=== PATIENT | male | born 1980 | race Caucasian/White ===

== ENCOUNTER → 2017-07-26 | Outpatient (CLI) | payer BC ==
--- NOTE | 2017-07-26 11:43 | ECHOS ---
STRESS ECHOCARDIOGRAM INDICATIONS: Chest pain, abnormal EKG. MEDICATIONS: Metformin, Januvia, aspirin, Lipitor. BASELINE HEART RATE: 101 BASELINE BLOOD PRESSURE: 130/49 MAXIMUM HEART RATE: 173 MAXIMUM BLOOD PRESSURE: 207/62 85% MPHR: 154 100% MPHR: 181 METS: 8.7 MAXIMUM STAGE REACHED: 3 TOTAL EXERCISE TIME: 7:00 CLINICAL INFORMATION: Baseline EKG revealed normal sinus rhythm without significant ST-T changes. Patient walked for 7 minutes on standard Ángel protocol. Resting heart rate was 101 beats per minute. Peak heart rate was 173 beats per minute. Resting blood pressure was 130/60 and peak blood pressure was 207/62. Patient did not have any angina or arrhythmia. EKG revealed upsloping nonspecific ST-segment changes, not suggestive of ischemia. There was no arrhythmia. This is a negative stress test by EKG criteria with limited exercise capacity. Baseline echo images revealed normal wall motion and wall thickening of all segments. At peak exercise there was good augmentation of left ventricular wall motion and wall thickening of all segments. A contrast agent was used to enhance the endocardial outline. There is no evidence suggest ischemia on this stress echocardiogram. IMPRESSION: 1. Limited exercise capacity with a negative stress test by EKG criteria. 2. Normal stress echocardiogram. MMODL / IJN: [id number] /
== END | disposition home or self-care (01) ==
LOC: RADNMMAIN 09:35
PROVIDERS: ATTEND Family Medicine
DX: I25.2 Old myocardial infarction (principal)
CPT/HCPCS: 93350; 93017; Q9950

== ENCOUNTER 2018-11-19 15:27 | Emergency (ER) | payer BC ==
[2018-11-19 15:48] VITALS: TEMP 98.6
[2018-11-19] MEDS ORDERED: IBUPROFEN 800 MG TAB PO STA (16:23)
[2018-11-19] MEDS ORDERED: DIPH,PERTUS(ACELL)TETVAC-LF 0.5 ML VIAL IM ONE (16:37)
--- NOTE | 2018-11-19 17:11 | XR ---
EXAMINATION TYPE: XR foot limited RT DATE OF EXAM: 11/19/2018 COMPARISON: NONE HISTORY: Foot pain TECHNIQUE: 2 views FINDINGS: Metatarsals are intact. There are plantar and Achilles calcaneal spurs. There is nondispla zaida fracture of the middle phalanx of the second toe. There is no dislocation. IMPRESSION: Fracture of the second toe middle phalanx. There is probably also fracture of the distal phalanx of the second toe.
[2018-11-19] MEDS ORDERED: LIDOCAINE 1% INJ 10MG/ML (20 ML MDV) SQ ONE (17:23)
--- NOTE | 2018-11-19 19:50 | ED ---
General Adult HPI - General Chief complaint: Wound/Laceration Stated complaint: Foot injury Time Seen by Provider: 11/19/18 16:19 Source: patient Mode of arrival: wheelchair Limitations: no limitations - History of Present Illness Initial comments: Patient is a 38-year-old male presents emergency Department with an injury to his right second toe. Patient reports using a lawnmower one hour ago when he accidentally ran over his right foot. Patient reports injury to the right second toe. Patient reports full range of motion. Denies numbness or tingling. Patient reports the pain is mild and throbbing. Patient reports mild bleeding at the site of injury. Patient denies taking medication to alleviate the symptoms. Patient is unaware of his tetanus status. Patient is not on blood thinners. - Related Data Previous Rx's Medication Instructions Recorded Cephalexin [Keflex] 500 mg PO Q6HR #40 cap 11/19/18 Allergies Allergy/AdvReac Type Severity Reaction Status Date / Time No Known Allergies Allergy Verified 11/19/18 15:48 Review of Systems ROS Statement: Those systems with pertinent positive or pertinent negative responses have been documented in the HPI. ROS Other: All systems not noted in ROS Statement are negative. Past Medical History Past Medical History: Diabetes Mellitus, Sleep Apnea/CPAP/BIPAP History of Any Multi-Drug Resistant Organisms: None Reported Past Surgical History: Appendectomy Past Psychological History: No Psychological Hx Reported Smoking Status: Never smoker Past Alcohol Use History: Rare Past Drug Use History: Marijuana General Exam Limitations: no limitations General appearance: alert, in no apparent distress, obese Head exam: Present: atraumatic, normocephalic, normal inspection Eye exam: Present: normal appearance, PERRL, EOMI Pupils: Present: normal accommodation ENT exam: Present: normal exam, mucous membranes moist, normal external ear exam Neck exam: Present: normal inspection, full ROM Respiratory exam: Present: normal lung sounds bilaterally Cardiovascular Exam: Present: regular rate, normal rhythm, normal heart sounds Extremities exam: Present: full ROM, tenderness (Tenderness at the site of injury), other (+2 dorsalis pedis and posterior tibialis bilaterally). Absent: normal inspection (Nail avulsion of the right second toe, abrasion on the right toe.), calf tenderness Back exam: Present: normal inspection, full ROM Neurological exam: Present: alert, oriented X3 Psychiatric exam: Present: normal affect, normal mood Skin exam: Present: warm, intact, normal color Course Vital Signs 11/19/18 11/19/18 15:44 20:10 Temperature 98.6 F Pulse Rate 103 H 94 Respiratory 16 18 Rate Blood Pressure 122/78 155/82 O2 Sat by Pulse 99 100 Oximetry Procedures - Procedures Initial comment: Toenail removal. 1% lidocaine digital block performed, wound irrigated thoroughly, open fracture of distal phalanges, nail bed laceration, Medical Decision Making - Medical Decision Making Patient is a 38-year-old male presenting to emergency Department with lawnmower injury to his right second toe. The site of injury was thoroughly irrigated with iodine water. Toenail was removed. There appears to be a laceration site to the nailbed an open fracture. X-ray is indicative of 1 fracture and right second toe and possible on the distal phalange. also examined the patient and is in agreement with the treatment plan. He spoke with Dr. Perales who suggested to put a bandage at the site of injury and sent him for all patient evaluation. Patient will be discharged with Keflex. Patient given Tylenol 3 starter pack. Patient given tetanus. Patient also given 1 g of Ancef. Patient will be discharged with an orthopedic shoe to minimize pressure at the site of injury. Patient advised to follow-up with Dr. Perales. Strict return parameters were thoroughly discussed with patient was understanding and agreeable. Disposition Clinical Impression: Nail avulsion of toe Disposition: HOME SELF-CARE Condition: Stable Instructions (If sedation given, give patient instructions): Nail Removal (ED) Additional Instructions: Please see prescribe medication as directed. Please follow up with orthopedics. Please return to emergency department if symptoms worsen. Prescriptions: Cephalexin [Keflex] 500 mg PO Q6HR #40 cap Is patient prescribed a controlled substance at d/c from ED?: No Referrals: Jason Lewis MD [Primary Care Provider] - 1-2 days Freddy Perales MD [STAFF PHYSICIAN] - 1-2 days Time of Disposition: 19:50
[2018-11-19] MEDS ORDERED: ACET/COD 300 MG/30 MG STARTER PACK 6 TAB BTL PO STA (20:04)
[2018-11-19 20:24] VITALS: BP 155/82; PULSE 94; RESP 18
== END 2018-11-19 20:10 | disposition home or self-care (01) ==
LOC: EC 15:27
DX: S92.501B Displaced unspecified fracture of right lesser toe(s), initial encounter for open fracture (principal); G47.30 Sleep apnea, unspecified; Z99.89 Dependence on other enabling machines and devices; Z23 Encounter for immunization; W28.XXXA Contact with powered lawn mower, initial encounter; Y93.89 Activity, other specified; Y92.89 Other specified places as the place of occurrence of the external cause
CPT/HCPCS: 73620; 90715; 99283; 11730; 96365; 90471; J0690; J2001

== ENCOUNTER → 2019-04-05 | Outpatient (CLI) | payer BC ==
--- NOTE | 2019-04-09 16:31 | HM ---
HOLTER MONITOR REPORT PROCEDURE PERFORMED: 24 hour Holter monitor. REFERRING DOCTOR: Dr. Lewis. INDICATION: Palpitations. CLINICAL INFORMATION: The patient was monitored for 24 hours. The baseline rhythm appeared to be a sinus mechanism with a minimum heart rate of 58 beats per minute, max heart rate of 200 beats per minute and average heart rate of 100 beats per minute. Ventricular ectopic events presented in less than 1% of the total beats count. The patient did have multiple episodes of tachycardia, appeared to be supraventricular tachycardia with possible sinus tachycardia. No evidence that the patient was asymptomatic during these episodes. CONCLUSION: 1. Sinus rhythm as a baseline mechanism. 2. Rare ventricular ectopic events. 3. The patient did have multiple episodes of tachycardia, appeared to be supraventricular tachycardia with differential diagnosis of sinus tachycardia. 4. No evidence of sinus pause or sinus arrest. 5. No evidence of any advanced AV block. MMORIANAL / ALEXAN: [id number] /
== END | disposition home or self-care (01) ==
LOC: RADECHMAIN 11:56
PROVIDERS: ATTEND Family Medicine
DX: I49.3 Ventricular premature depolarization (principal); I47.1 Supraventricular tachycardia
CPT/HCPCS: 93225; 93226

== ENCOUNTER → 2020-06-05 | Outpatient (CLI) | payer BC ==
[2020-06-05 16:40] LABS: HCT 40.2 % (39.6-50.0); HGB 13.5 g/dL (13.0-17.0); MCH 30.5 pg (27.0-32.0); MCHC 33.6 g/dL (32.0-37.0); MCV 90.7 fL (80.0-97.0); Mean Platelet Volume 10.7 fL (9.5-12.2); Platelet Count 192 X 10*3/uL (140-440); RBC 4.43 X 10*6/uL (4.40-5.60); RDW 12.5 % (11.5-14.5)
[2020-06-05 17:31] LABS: Hemoglobin A1C 7.5 % (4.0-6.0)
[2020-06-05 19:54] LABS: African American GFR (CKD) 107.1 (60.0-200.0); Albumin 4.9 g/dL (3.80-4.90); Albumin/Globulin Ratio 2.33 (1.60-3.17); Anion Gap 12.2 mmol/L (4.00-12.00); Calcium 9.7 mg/dL (8.7-10.3); Carbon Dioxide 24.8 mmol/L (21.6-31.8); Chol/HDL Ratio 5.44; Globulin 2.1 g/dL (1.6-3.3); Non-African American GFR(CKD) 92.4 (60.0-200.0); Potassium 4.2 mmol/L (3.5-5.5); Total Bilirubin 0.5 mg/dL (0.2-1.2)
[2020-06-05 20:31] LABS: Prostate Specific Antigen 0.2 ng/mL (0.0-2.5)
[2020-06-06 00:39] LABS: Urine Creatinine 129.3 mg/dL
== END | disposition home or self-care (01) ==
LOC: LABWHC1 08:57
PROVIDERS: ATTEND Internal Medicine Endocrinology, Diabetes & Metabolism
DX: E29.1 Testicular hypofunction (principal); E11.65 Type 2 diabetes mellitus with hyperglycemia
CPT/HCPCS: 36415; 80053; 80061; 82043; 82570; 83036; 83721; 84153; 84403; 84443; 85027

== ENCOUNTER → 2020-11-11 | Outpatient (CLI) | payer BC | END | disposition home or self-care (01) | LOC: LABWHC1 07:55 | PROVIDERS: ATTEND Nurse Practitioner Family | DX: R00.0 Tachycardia, unspecified (principal); R06.02 Shortness of breath; Z86.16 Personal history of COVID-19 | CPT/HCPCS: 93005 ==

== ENCOUNTER → 2021-04-04 | Outpatient (CLI) | payer BC ==
[2021-04-04 18:05] LABS: HCT 44.9 % (39.6-50.0); HGB 14.4 g/dL (13.0-17.0); MCH 29.9 pg (27.0-32.0); MCHC 32.1 g/dL (32.0-37.0); MCV 93.2 fL (80.0-97.0); Mean Platelet Volume 10.1 fL (9.5-12.2); Platelet Count 230 X 10*3/uL (140-440); RBC 4.82 X 10*6/uL (4.40-5.60); RDW 13.4 % (11.5-14.5); WBC 4.96 X 10*3/uL (4.50-10.00)
[2021-04-04 18:30] LABS: ALT 57 U/L (10-49); AST 35 U/L (14-35); African American GFR (CKD) 96.9 (60.0-200.0); Albumin 4.8 g/dL (3.8-4.9); Albumin/Globulin Ratio 1.67 (1.60-3.17); Alkaline Phosphatase 52 U/L (41-126); BUN/Creat Ratio 13.61 Ratio (12.00-20.00); Blood Urea Nitrogen 14.7 mg/dL (9.0-27.0); Calcium 9.8 mg/dL (8.7-10.3); Carbon Dioxide 25.1 mmol/L (20.0-27.5); Chloride 101 mmol/L (96-109); Chol/HDL Ratio 4.83 Ratio; Globulin 2.9 g/dL (1.6-3.3); Glucose 140 mg/dL (70-110); LDL Cholesterol,Calculated 58.9 mg/dL (0.0-131.0); Non-African American GFR(CKD) 83.6 (60.0-200.0); Potassium 4.4 mmol/L (3.5-5.5); Sodium 137 mmol/L (135-145); Total Protein 7.7 g/dL (6.2-8.2)
== END | disposition home or self-care (01) ==
LOC: LABWHC1 11:00
PROVIDERS: ATTEND Internal Medicine Endocrinology, Diabetes & Metabolism
DX: E11.9 Type 2 diabetes mellitus without complications (principal); E29.1 Testicular hypofunction
CPT/HCPCS: 36415; 80053; 80061; 83036; 84403; 85027

== ENCOUNTER → 2021-12-04 | Outpatient (CLI) | payer BC ==
[2021-12-04 18:49] LABS: BUN/Creat Ratio 9.25 Ratio (12.00-20.00); Blood Urea Nitrogen 9.9 mg/dL (9.0-27.0); Carbon Dioxide 23.1 mmol/L (20.0-27.5); Chloride 106 mmol/L (96-109); Glucose 131 mg/dL (70-110); Potassium 4.3 mmol/L (3.5-5.5); Sodium 142 mmol/L (135-145)
[2021-12-04 18:50] LABS: ALT 44 U/L (10-49); AST 38 U/L (14-35); Albumin 4.7 g/dL (3.8-4.9); Albumin/Globulin Ratio 1.53 (1.60-3.17); Alkaline Phosphatase 52 U/L (41-126); Calcium 9.6 mg/dL (8.7-10.3); Globulin 3.1 g/dL (1.6-3.3); Non-African American GFR(CKD) 84.6 (60.0-200.0); Total Protein 7.8 g/dL (6.2-8.2)
[2021-12-04 19:11] LABS: Basophils # (A) 0.02 X 10*3/uL (0.00-0.10); Basophils % (A) 0.4 %; Eosinophils # (A) 0.12 X 10*3/uL (0.04-0.35); Eosinophils % (A) 2.6 %; HCT 43.2 % (39.6-50.0); HGB 13.8 g/dL (13.0-17.0); Immature Grans, Automated 0.4 %; Lymphocytes # (A) 1.15 X 10*3/uL (0.90-5.00); Lymphocytes % (A) 25.1 %; MCH 29.7 pg (27.0-32.0); MCHC 31.9 g/dL (32.0-37.0); MCV 92.9 fL (80.0-97.0); Mean Platelet Volume 10.2 fL (9.5-12.2); Monocytes # (A) 0.35 X 10*3/uL (0.20-1.00); Monocytes % (A) 7.6 %; NRBC Per 100 WBC 0 /100 WBCS (0.0-0.0); Neutrophils # (A) 2.92 X 10*3/uL (1.80-7.70); Neutrophils % (A) 63.9 %; Platelet Count 223 X 10*3/uL (140-440); RBC 4.65 X 10*6/uL (4.40-5.60); RDW 13.2 % (11.5-14.5); WBC 4.58 X 10*3/uL (4.50-10.00)
== END | disposition home or self-care (01) ==
LOC: LABWHC1 10:08
PROVIDERS: ATTEND Internal Medicine Endocrinology, Diabetes & Metabolism
DX: E11.65 Type 2 diabetes mellitus with hyperglycemia (principal); E29.1 Testicular hypofunction
CPT/HCPCS: 36415; 80053; 80061; 82043; 82570; 83036; 84153; 84403; 84443; 85025

== ENCOUNTER → 2023-08-02 | Outpatient (CLI) | payer BC ==
[2023-08-02 16:34] LABS: ALT 73 U/L (10-49); AST 38 U/L (14-35); Albumin 4.6 g/dL (3.8-4.9); Albumin/Globulin Ratio 1.64 Ratio (1.60-3.17); Alkaline Phosphatase 76 U/L (41-126); Blood Urea Nitrogen 12.1 mg/dL (9.0-27.0); Calcium 9.8 mg/dL (8.7-10.3); Carbon Dioxide 25.7 mmol/L (21.6-31.8); Chloride 105 mmol/L (96-109); Chol/HDL Ratio 3.66 Ratio; Globulin 2.8 g/dL (1.6-3.3); Glucose 142 mg/dL (70-110); LDL Cholesterol,Calculated 35.8 mg/dL (0.0-131.0); Potassium 3.9 mmol/L (3.5-5.5); Prostate Specific Antigen 0.17 ng/mL (0.000-2.500); Sodium 141 mmol/L (135-145); Total Bilirubin 0.4 mg/dL (0.3-1.2); Total Protein 7.4 g/dL (6.2-8.2)
== END | disposition home or self-care (01) ==
LOC: LABWHC1 10:49
PROVIDERS: ATTEND Internal Medicine Endocrinology, Diabetes & Metabolism
DX: E11.65 Type 2 diabetes mellitus with hyperglycemia (principal); E29.1 Testicular hypofunction
CPT/HCPCS: 36415; 80053; 80061; 82043; 82570; 83036; 84153; 84403; 84443

== ENCOUNTER → 2024-01-13 | Outpatient (CLI) | payer BC ==
[2024-01-13 15:17] LABS: HCT 39.9 % (39.6-50.0); HGB 13.7 g/dL (13.0-17.0); MCH 31.3 pg (27.0-32.0); MCHC 34.3 g/dL (32.0-37.0); MCV 91.1 FL (80.0-97.0); Mean Platelet Volume 10.4 FL (9.5-12.2); NRBC Per 100 WBC 0 X 10*3/uL (0.00-0.01); Platelet Count 209 X 10*3/uL (140-440); RBC 4.38 X 10*6/uL (4.40-5.60); WBC 5.13 X 10*3/uL (4.50-10.00)
[2024-01-13 15:28] LABS: ALT 46 U/L (10-49); AST 30 U/L (14-35); Albumin 4.7 g/dL (3.8-4.9); Albumin/Globulin Ratio 1.62 Ratio (1.60-3.17); Alkaline Phosphatase 66 U/L (41-126); BUN/Creat Ratio 12.91 Ratio (12.00-20.00); Blood Urea Nitrogen 14.2 mg/dL (9.0-27.0); Calcium 9.8 mg/dL (8.7-10.3); Carbon Dioxide 22.6 mmol/L (21.6-31.8); Chloride 104 mmol/L (96-109); Chol/HDL Ratio 3.88 Ratio; Globulin 2.9 g/dL (1.6-3.3); Glucose 111 mg/dL (70-110); LDL Cholesterol,Calculated 38.2 mg/dL (0.0-131.0); Prostate Specific Antigen 0.19 ng/mL (0.000-2.500); Sodium 140 mmol/L (135-145); Total Bilirubin 0.4 mg/dL (0.3-1.2); Total Protein 7.6 g/dL (6.2-8.2)
== END | disposition home or self-care (01) ==
LOC: LABWHC1 11:32
PROVIDERS: ATTEND Internal Medicine Endocrinology, Diabetes & Metabolism
DX: E11.65 Type 2 diabetes mellitus with hyperglycemia (principal); E29.1 Testicular hypofunction
CPT/HCPCS: 36415; 80053; 80061; 82043; 82570; 83036; 84153; 84403; 84443; 85027

== ENCOUNTER → 2024-09-07 | Outpatient (CLI) | payer BC ==
[2024-09-07 19:43] LABS: HGB 13.2 g/dL (13.0-17.0); MCH 30.2 pg (27.0-32.0); MCV 91.5 FL (80.0-97.0); Mean Platelet Volume 10.1 FL (9.5-12.2); NRBC Per 100 WBC 0 X 10*3/uL (0.00-0.01); Platelet Count 227 X 10*3/uL (140-440); RBC 4.37 X 10*6/uL (4.40-5.60); WBC 5.16 X 10*3/uL (4.50-10.00)
[2024-09-07 19:59] LABS: ALT 30 U/L (10-49); AST 27 U/L (14-35); Albumin 4.7 g/dL (3.8-4.9); Albumin/Globulin Ratio 1.62 Ratio (1.60-3.17); Alkaline Phosphatase 51 U/L (41-126); Blood Urea Nitrogen 13.8 mg/dL (9.0-27.0); Calcium 9.7 mg/dL (8.7-10.3); Carbon Dioxide 24.1 mmol/L (21.6-31.8); Chloride 106 mmol/L (96-109); Chol/HDL Ratio 2.93 Ratio; Globulin 2.9 g/dL (1.6-3.3); Glucose 66 mg/dL (70-110); LDL Cholesterol,Calculated 49.9 mg/dL (0.0-131.0); Potassium 3.9 mmol/L (3.5-5.5); Prostate Specific Antigen 0.18 ng/mL (0.000-2.500); Sodium 143 mmol/L (135-145); Total Bilirubin 0.4 mg/dL (0.3-1.2); Total Protein 7.6 g/dL (6.2-8.2); VLDL Calculation 19.88 mg/dL (5.00-40.00)
== END | disposition home or self-care (01) ==
LOC: LABWHC1 15:32
PROVIDERS: ATTEND Internal Medicine Endocrinology, Diabetes & Metabolism
DX: E11.65 Type 2 diabetes mellitus with hyperglycemia (principal); E29.1 Testicular hypofunction
CPT/HCPCS: 36415; 80053; 80061; 82043; 82570; 83036; 84153; 84403; 84443; 85027